=== PATIENT | male | born 1980 | race Two or more races ===

== ENCOUNTER 2017-06-08 16:58 | Emergency (ER) | payer OTHER ==
[~2017-06-08] VITALS: Ht 180.3 cm; Wt 83.9 kg
--- NOTE | 2017-06-08 17:00 | NUR ---
PT BIBRA FROM [facility]. HERE FOR POSSIBLE HEROIN INGESTION. PT HAS STABLE VITALS. SAKSHI ANY DISCOMFORT. C/O RT FOOT PAIN. PUNCTURE WOUND FROM STEPPING ON A NAIL. STATES UTD TO TETANUS SHOT. AWAITING MD TEIXEIRA.
--- NOTE | 2017-06-08 17:10 | NUR ---
DR BERNARD AT BEDSIDE FOR EVAL.
--- NOTE | 2017-06-08 18:00 | NUR ---
PT PROVIDED W/ MEAL TRAY.
--- NOTE | 2017-06-08 19:13 | NUR ---
PT STABLE VITALS. NO CHANGE IN CONDITION. MEDICALLY CLEARED BY DR BERNARD. D/C TO PD IN STABLE CONDITION.
[2017-06-08 19:15] VITALS: BP 132/85
== END 2017-06-08 19:16 ==
LOC: ER 17:00
DX: F11.10 Opioid abuse, uncomplicated (principal); J45.909 Unspecified asthma, uncomplicated
CPT/HCPCS: A4606; Z7610

== ENCOUNTER 2017-06-09 09:45 | Emergency (ER) | payer OTHER ==
[~2017-06-09] VITALS: Ht 177.8 cm; Wt 72.6 kg
[2017-06-09 09:45] VITALS: BP 133/89
--- NOTE | 2017-06-09 09:52 | NUR ---
accu-check 116. dr boyce made aware.
[2017-06-09] MEDS ORDERED: MECLIZINE HCL 25 MG TABLET ONE (09:54)
[2017-06-09] MEDS ORDERED: MECLIZINE HCL 12.5 MG TABLET PO ONE (10:00)
== END 2017-06-09 10:05 | disposition home or self-care (01) ==
LOC: ER 09:47
DX: R42 Dizziness and giddiness (principal); J45.909 Unspecified asthma, uncomplicated
CPT/HCPCS: 82962; 93005; 99283; A4606; J8597; Z7610